=== PATIENT | female | born 1990 | race African-American/Black ===

== ENCOUNTER 2017-04-20 13:07 | Emergency (ER) | payer SELFPAY ==
[2017-04-20] MEDS ORDERED: cloNIDine 0.1 MG TAB ONE ×2 (14:30→15:34)
[2017-04-20] MEDS ORDERED: Acetaminophen 500 MG TAB ONE (14:30)
== END 2017-04-20 16:53 | disposition home or self-care (01) ==
LOC: ERS 13:07
DX: I10 Essential (primary) hypertension (principal); G40.909 Epilepsy, unspecified, not intractable, without status epilepticus; Z79.899 Other long term (current) drug therapy
CPT/HCPCS: 99283

== ENCOUNTER 2018-06-23 13:46 | Observation (INO) | payer OTHER, SELFPAY ==
[2018-06-23 15:27] LABS: #Basophils 0.1 thou/uL (0.0-0.2); #Eosinphils 0.2 thou/uL (0.0-0.7); #Lymphocytes 2.2 thou/uL (1.20-3.40); #Monocytes 0.6 thou/uL (0.11-0.59); #Neutrophils 2.3 thou/uL (1.40-6.50); %Basophils 1.1 % (0.0-1.0); %Lymphocytes 41.2 % (21.0-51.0); %Monocytes 10.7 % (0.0-10.0); Hemoglobin 12.3 g/dL (12.0-16.0); Mean Corpuscular HGB CONC 31.4 g/dL (32.0-36.0); Mean Corpuscular Hemoglobin 24.5 pg (27.0-31.0); Mean Platelet Volume 9.1 fL (7.4-10.4); Platelet Count 240 thou/uL (130-400); RBC Distribution Width 13.8 % (11.5-14.5); Red Blood Cell (RBC) Count 5.01 mill/uL (4.20-5.40); White Blood Cell (WBC) Count 5.4 thou/uL (4.8-10.8)
--- NOTE | 2018-06-23 15:42 | RAD ---
PORTABLE CHEST: Date: 06/23/18 HISTORY: Dyspnea on exertion. FINDINGS: Heart size is enlarged. Mediastinal structures are unremarkable. Lungs are clear of infiltrates. No s igns of failure. IMPRESSION: Cardiomegaly. POS: [facility]
[2018-06-23 15:46] LABS: ALT (SGPT) 12 U/L (8-55); AST (SGOT) 13 U/L (5-34); Albumin 4.2 g/dL (3.5-5.0); Alkaline Phosphatase 60 U/L (40-150); Anion Gap 13 mmol/L (10-20); BUN (Urea Nitrogen) 23 mg/dL (7.0-18.7); Bilirubin, Total 0.4 mg/dL (0.2-1.2); Calc. Creatinine Clearance 0 mL/min (70-130); Calcium 9.9 mg/dL (7.8-10.44); Carbon Dioxide 25 mmol/L (22-29); Chloride 104 mmol/L (98-107); Estimated GFR-MDRD 68; Globulin 2.7 g/dL (2.4-3.5); Glucose 84 mg/dL (70-105); Potassium 3.7 mmol/L (3.5-5.1); Protein, Total 6.9 g/dL (6.0-8.3); Sodium 138 mmol/L (136-145)
[2018-06-23 16:09] LABS: CKMB 2.2 ng/mL (0-6.6)
[2018-06-23 18:25] LABS: BHCG - Serum Negative (NEGATIVE); Pregs Control Background? CLEAR/WHITE (CLR/WHITE); Pregs Control Bar Appear? YES (CONTROL BAR)
[2018-06-23] MEDS ORDERED: Aspirin 325 MG TAB ONE (18:47)
[2018-06-23 19:22] LABS: Troponin I 0.054 ng/mL (< 0.028)
[2018-06-23 21:30] VITALS: BMI 32.5
[2018-06-23] MEDS ORDERED: Ondansetron ODT 4 MG TAB SL PRN (21:33)
[2018-06-23] MEDS ORDERED: Ondansetron PF 4 MG/2 ML Vial IVP PRN (21:33)
[2018-06-23 21:51] LABS: Troponin I 0.068 ng/mL (< 0.028)
[2018-06-24] MEDS ORDERED: Acetaminophen 325 MG TAB PO PRN (07:39)
[2018-06-24] MEDS ORDERED: Enoxaparin Sodium 40 MG/0.4 ML SYRINGE SC SCH (09:00)
--- NOTE | 2018-06-24 09:35 | HP ---
PRIMARY CARE PHYSICIAN: Dr. Magan Bacon. CHIEF COMPLAINT: Weakness, elevated blood pressure, and lightheadedness with dizziness. HISTORY OF PRESENT ILLNESS: Ms. Alexander is a pleasant 27-year-old female with past medical history of hypertension and epilepsy, she presented to [facility] with weakness, lightheadedness, and dizziness for 1 week. She was recently started on clonidine and olmesartan for her elevated blood pressure by her primary care physician, Dr. Bacon, she states whenever she takes her morning medications, she had developed these symptoms shortly after. She had denied any chest pain, however, did experience some mild shortness of breath with activity over the last week as well. She had denied any fever, chills, headache, blurred vision, abdominal pain, nausea, or vomiting. She had denied any change in her stool and denies any recent illness. She states the symptoms came on suddenly and have not gotten any better, but she also noticed symptoms worse when changing position and with activity. REVIEW OF SYSTEMS: All other systems reviewed and negative unless mentioned in the HPI. PAST MEDICAL HISTORY: Hypertension, and epilepsy, last seizure in 2014, no longer on medication. SURGICAL HISTORY: Right breast tumor removal in 2006. PSYCHIATRIC HISTORY: No previous psychiatric history noted. SOCIAL HISTORY: Alcohol use is social, when she does drink, it is roughly one drink. No tobacco or illicit drug use. KNOWN ALLERGIES: No known drug allergies. HOME MEDICATIONS: 1. Clonidine 0.2 mg b.i.d. 2. Olmesartan 40 mg p.o. daily. 3. Amlodipine 10 mg p.o. daily. 4. Hydrochlorothiazide 25 mg p.o. daily. PHYSICAL EXAMINATION: VITAL SIGNS: Blood pressure 123/83, pulse 72, respirations 14, temperature 98.3 degrees Fahrenheit, and O2 saturations 98% on room air. GENERAL: The patient is awake, alert, and oriented x3. No acute distress noted. HEENT: Atraumatic and normocephalic. Pupils are round and reactive to light. Extraocular muscles are intact. Moist mucous membranes noted. NECK: Soft, supple, and nontender. Trachea, midline. No JVD. RESPIRATORY: Clear to auscultation bilaterally. No wheezes, no rhonchi, no rales. Chest expansion equal. CARDIOVASCULAR: Positive S1 and S2. Regular rate and rhythm. No murmur or extra heart sound noted. ABDOMEN: Soft and nontender. Bowel sounds present. BACK: Normal range of motion. Nontender. No CVA tenderness. MUSCULOSKELETAL: Strength 5+ bilaterally in upper and lower extremities. Moves all extremities equal. Pedal and radial pulses are intact and palpable. NEUROLOGIC: Cranial nerves 2 through 12 are intact. No focal deficits noted. Alert and oriented x3. Gait not assessed. SKIN: Warm, dry, and intact. No lesions. No rashes. No ulcerations. PSYCHIATRIC: Good mood and affect. LABORATORY DATA: WBC 5.4, RBC 5.01, hemoglobin 12.3, platelets 240. D-dimer less than 0.27. Sodium 138, potassium 3.7, chloride 104, BUN 23, creatinine 1.15, estimated GFR 68. Troponin 0.051, trended up to 0.068; BNP 103.2. Serum , negative. DIAGNOSTIC IMAGING: Chest x-ray showed cardiomegaly, however, lungs are clear of infiltrates. No signs of congestion. ASSESSMENT AND PLAN: 1. Hypertension, blood pressure is currently stable, she is off her home medications. Monitor vital signs closely. Orthostatic vital signs negative. 2. Acute kidney injury, hold all nephrotoxic medications at this time. Continue with gentle hydration and recheck BMP. 3. Indeterminate troponin, troponin is trending up from 0.051 to 0.068, place consult for Cardiology Services. This trending of her troponin is likely secondary to acute kidney injury. However, we will rule out any ischemia and obtain stress test and echocardiogram. 4. History of epilepsy, she currently remains stable at this time. No seizure-like activity, she is not on any home medications for this and her last seizure was in 2014. 5. Deep venous thrombosis and gastrointestinal prophylaxis. 6. Code status, full code. DISPOSITION: Pending clinical workup and clinical findings. Job ID: [id number]
[2018-06-24 10:24] LABS: #Eosinphils 0.2 thou/uL (0.0-0.7); #Monocytes 0.4 thou/uL (0.11-0.59); #Neutrophils 1.8 thou/uL (1.40-6.50); %Basophils 0.3 % (0.0-1.0); %Eosinophils 5.3 % (0.0-10.0); %Lymphocytes 45.5 % (21.0-51.0); %Monocytes 8.8 % (0.0-10.0); %Neutrophils 40.1 % (42.0-75.0); Mean Corpuscular Hemoglobin 23.9 pg (27.0-31.0); Mean Corpuscular Volume 76.9 fL (78.0-98.0); Platelet Count 266 thou/uL (130-400); Red Blood Cell (RBC) Count 5.44 mill/uL (4.20-5.40); White Blood Cell (WBC) Count 4.5 thou/uL (4.8-10.8)
[2018-06-24 10:40] LABS: Anion Gap 14 mmol/L (10-20); BUN (Urea Nitrogen) 21 mg/dL (7.0-18.7); Calc. Creatinine Clearance 94 mL/min (70-130); Calcium 9.3 mg/dL (7.8-10.44); Carbon Dioxide 26 mmol/L (22-29); Chloride 104 mmol/L (98-107); Estimated GFR-MDRD 80; Glucose 95 mg/dL (70-105); Potassium 3.6 mmol/L (3.5-5.1); Sodium 140 mmol/L (136-145)
[2018-06-24] MEDS: Famotidine 20 MG TAB PO SCH ×2 (10:40→20:46)
[2018-06-24] MEDS ORDERED: Regadenoson 0.4 MG/5 ML SYRINGE ONE (12:03)
[2018-06-24 12:36] LABS: Troponin I 0.051 ng/mL (< 0.028)
--- NOTE | 2018-06-24 17:28 | NM ---
NUCLEAR MEDICINE CARDIAC STRESS WITH EF AND WALL MOTION: HISTORY: Hypertension. Chest pain. COMPARISON: None TECHNIQUE: The patient was administered 9.6 millicuries of technetium 99m sestamibi for rest imaging and 30.30 m illicuries of technetium 99m sestamibi for stress imaging. Cardiac gating was performed. FINDINGS: There is some reversibility involving the mid and basal portion of the lateral wall of the left ventr icle. There are no fixed defects. TID is 0.92. End-diastolic volume is 185 mL. End-systolic volume is 131 mL. CARDIAC GATING: Global hypokinesis. Ejection fraction 30%. IMPRESSION: 1. Reversibility involving the lateral wall of the left ventricle. 2. Enlarged left ventricle. 3. Global hypokinesis. 4. Ejection fraction 30%. POS: [facility]
[2018-06-24] MEDS ORDERED: Communication Order-Pharmacy FS SCH (21:15)
--- NOTE | 2018-06-25 01:29 | CON ---
DATE OF CONSULTATION: HISTORY OF PRESENT ILLNESS: Renetta Alexander is a 27-year-old black female with long-standing history of hypertension since the age of 18. She came to the emergency room for evaluation of weakness, lightheadedness, and dizziness that has been occurring over the last week. She was recently started on clonidine and Olmesartan for her hypertension, and shortly after taking her morning medicines , she would develop the lightheadedness. She also states that if she walks 20 feet, she will become short of breath. At times, she does have some chest tightness, but it is very vague about when that occurs. She denies any history of PND or orthopnea. She denies any leg edema. She has not had any fever, headache, nausea, or vomiting. Since being admitted, those medications have been stopped, and she has not had the lightheadedness. PAST MEDICAL HISTORY: Hypertension and epilepsy. Her last seizure was in 2014 and is no longer on any medications for that. PAST SURGICAL HISTORY: Removal of right benign breast tumor in 2006. CURRENT MEDICATIONS: At home, 1. Clonidine 0.2 b.i.d. 2. Olmesartan 40 daily. 3. Amlodipine 10 mg daily. 4. Hydrochlorothiazide 25 daily. ALLERGIES: NONE. SOCIAL HISTORY: She has never smoked. She rarely will have a drink. She works in housekeeping at [employer]. FAMILY HISTORY: Positive for hypertension. REVIEW OF SYSTEMS: A 10-point review of systems is, otherwise, unremarkable. PHYSICAL EXAMINATION: VITAL SIGNS: Blood pressure 141/87, 137/88, pulse of 93. She did have a blood pressure of 168/110 during Lexiscan Cardiolite testing. HEENT: PERRL. NECK: Supple. CHEST: Clear. CARDIAC: S1 and S2 normal without any S3, S4, or murmurs. ABDOMEN: Normal bowel sounds without tenderness. EXTREMITIES: Revealed no clubbing, cyanosis, or edema. NEUROLOGIC: Grossly intact. SKIN: Warm and dry. LABORATORY DATA: EKG reveals normal sinus rhythm with left ventricular hypertrophy with repolarization abnormalities. Hemoglobin 13.0, hematocrit 41.8, white count 4500, platelets 266,000. D-dimer less than 0.27. Admission creatinine was 1.15 , however this has fallen to 1.00. Sodium 140, potassium 3.6, chloride 104, carbon dioxide 26. Troponin I is up to 0.068. BNP 103.2. Lexiscan Cardiolite test revealed enlarged left ventricle with end-diastolic volume of 185 mL and systolic volume of 131 mL with ejection fraction of 30% and global hypokinesis. There was lateral wall ischemia. Echocardiogram revealed mild concentric left ventricular hypertrophy with mild left ventricular enlargement. Ejection fraction was severely depressed at 20% to 25%. There is mild left atrial enlargement, moderate mitral regurgitation, mild tricuspid regurgitation, and mild pulmonic regurgitation. IMPRESSION: 1. Lightheadedness, dizziness, and weakness, probably due to hypotension at home. 2. Longstanding hypertension which apparently has been somewhat difficult to control. 3. Severe left ventricular dysfunction with ejection fraction of 20% to 25%. 4. Lateral wall ischemia, on Cardiolite. 5. History of seizure disorder, on no medications at this time. RECOMMENDATIONS: It is recommended that Ms. Alexander undergo cardiac catheterization. Risks of this were discussed including , myocardial infarction, dye reaction, vascular injury, CVA, transfusion, limb loss, renal loss, etc. Risks of intervention and stent placement were discussed including , myocardial infarction, emergent CABG, restenosis, stent thrombosis, vessel perforation, etc. She has no history of gastrointestinal bleeding or stroke. She does not have any upcoming surgeries. It was recommended that a drug-eluting stent will be placed if required. However, in a nonsmoking female in this age group, it would be somewhat unusual to have coronary artery disease unless she has some type of congenital anomaly. Also in her age group with very [id number] blood pressure in a young female, renal arteriography will be performed to rule out fibromuscular dysplasia of the renal arteries. Job ID: [id number] [facility]
[2018-06-25 05:13] LABS: Anion Gap 14 mmol/L (10-20); BUN (Urea Nitrogen) 23 mg/dL (7.0-18.7); Calc. Creatinine Clearance 90 mL/min (70-130); Calcium 9.4 mg/dL (7.8-10.44); Carbon Dioxide 24 mmol/L (22-29); Cardiac Risk 5.6 (Less than 4.5); Chloride 105 mmol/L (98-107); Cholesterol 163 mg/dl (< 200 Desired); Estimated GFR-MDRD 76; Glucose 97 mg/dL (70-105); HDL Cholesterol 29 mg/dL (>60 Neg Risk); LDL Cholesterol, Calculated 101 mg/dL; Potassium 3.4 mmol/L (3.5-5.1); Sodium 140 mmol/L (136-145); Triglycerides 165 mg/dL (Less than 150)
[2018-06-25 05:37] LABS: Band 1 % (5-11); Eosinophils 2 % (0-10); Hemoglobin 13.2 g/dL (12.0-16.0); Lymphocytes 47 % (21-51); MDiff Complete? YES; Mean Corpuscular HGB CONC 31.4 g/dL (32.0-36.0); Mean Corpuscular Hemoglobin 24.3 pg (27.0-31.0); Mean Corpuscular Volume 77.3 fL (78.0-98.0); Mean Platelet Volume 9.2 fL (7.4-10.4); Monocytes 6 % (0-10); Neutrophil 42 % (42-75); Platelet Count 281 thou/uL (130-400); Reactive Lymphocytes 2 % (0-10); Red Blood Cell (RBC) Count 5.43 mill/uL (4.20-5.40)
[2018-06-25] MEDS ORDERED: Sodium Chloride 0.9% 1,000 ML IV SCH ×2 (06:00→07:47)
[2018-06-25] MEDS: Famotidine 20 MG TAB PO SCH ×2 (06:15→20:57)
[2018-06-25] MEDS ORDERED: Heparin 10,000 UNITS/1 ML VIAL ONE (06:30)
[2018-06-25] MEDS ORDERED: Midazolam HCl 2 mg/2 ml Vial ONE (07:00)
[2018-06-25] MEDS ORDERED: Fentanyl 100 MCG/2 ML VIAL ONE (07:00)
[2018-06-25] MEDS ORDERED: Protamine Sulfate 50 MG/5 ML VIAL ONE (07:26)
[2018-06-25] MEDS ORDERED: hydrALAZINE 20 MG/ML VIAL ONE (07:32)
[2018-06-25] MEDS ORDERED: Enalaprilat Dihydrate 1.25 MG/ML VIAL ONE ×2 (07:39→07:41)
[2018-06-25] MEDS ORDERED: Acetaminophen/Codeine 30-300mg Tablet PO PRN ×2 (07:45)
[2018-06-25] MEDS ORDERED: traMADol HCl 50 MG TAB PO PRN (07:45)
[2018-06-25] MEDS ORDERED: Potassium Chloride 20 MEQ TAB PO SCH (07:45)
[2018-06-25] MEDS ORDERED: Sodium Chloride 0.9% 200 ML IV SCH (07:45)
[2018-06-25] MEDS ORDERED: Carvedilol 3.125 MG TAB PO SCH (08:00)
[2018-06-25] MEDS ORDERED: Iopamidol 370 76% 50 ML VIAL FS ONE (11:30)
[2018-06-25] MEDS ORDERED: Iopamidol 370 76% 100 ML VIAL ONE (11:30)
--- NOTE | 2018-06-25 14:49 | PDOC.PN ---
- Subjective Encounter Start Date: 06/25/18 Encounter Start Time: 14:48 Subjective: Patient lying in bed, reports feeling well today. No chest pain or SOB -: Underwent cath which showed no ischemia, however EF 15-20% - Objective Resuscitation Status - Order Detail: 06/24/18 07:39 Resuscitation Status Routine Co-Sign Provider: Resuscitation Status: FULL: Full Resuscitation MAR Reviewed: Yes Vital Signs & Weight: Vital Signs (12 hours) Temp Pulse Resp BP BP BP Pulse Ox 06/25/18 11:40 84 20 142/85 H 97 06/25/18 08:00 77 16 144/84 H 06/25/18 07:58 97.7 F 79 20 144/84 H 94 L 06/25/18 03:59 98.1 F 68 16 144/95 H 97 Weight Weight 153 lb 12.8 oz I&O: 06/24/18 06/25/18 06/26/18 06:59 06:59 06:59 Intake Total 300 1200 Output Total 600 Balance -300 1200 Result Diagrams: 06/25/18 04:35 06/25/18 04:35 Radiology Reviewed by me: Yes Phys Exam - Physical Examination Constitutional: NAD HEENT: PERRLA, oral pharynx no lesions Neck: no nodes, full ROM Respiratory: no wheezing, clear to auscultation bilateral Cardiovascular: RRR, no significant murmur Gastrointestinal: soft, positive bowel sounds Musculoskeletal: no edema, pulses present Neurological: non-focal, moves all 4 limbs Lymphatic: no nodes Psychiatric: normal affect, A&O x 3 Skin: no rash, cap refill <2 seconds Dx/Plan (1) Cardiomyopathy Code(s): I42.9 - CARDIOMYOPATHY, UNSPECIFIED Status: Acute (2) Systolic CHF, acute Code(s): I50.21 - ACUTE SYSTOLIC (CONGESTIVE) HEART FAILURE Status: Acute (3) Hypertension Code(s): I10 - ESSENTIAL (PRIMARY) HYPERTENSION Status: Acute - Plan cont current plan of care * Cardiology following, planning for lifevest * Continue medical management including newly added furosemide and entresto * Continue other home medications for BP control * Monitor vitals and labs * Likely discharged once okay with cardiology
[2018-06-25] MEDS: Carvedilol 6.25 MG TAB PO SCH ×2 (15:10→16:55)
[2018-06-25] MEDS: Sacubitril 24.5 MG/Valsartan 25.5 MG TABLET PO SCH ×2 (15:19→20:57)
[2018-06-25] MEDS: Furosemide 20 MG TAB PO SCH (15:20)
[2018-06-25] MEDS: Docusate 100 MG CAP PO SCH (20:57)
[2018-06-26 07:14] LABS: Anion Gap 11 mmol/L (10-20); BUN (Urea Nitrogen) 14 mg/dL (7.0-18.7); Calc. Creatinine Clearance 102 mL/min (70-130); Calcium 9.1 mg/dL (7.8-10.44); Carbon Dioxide 23 mmol/L (22-29); Chloride 107 mmol/L (98-107); Estimated GFR-MDRD Greater than 90; Glucose 101 mg/dL (70-105); Potassium 3.5 mmol/L (3.5-5.1); Sodium 137 mmol/L (136-145)
[2018-06-26] MEDS: Carvedilol 6.25 MG TAB PO SCH ×2 (08:34→17:30)
[2018-06-26] MEDS: Docusate 100 MG CAP PO SCH (08:35)
[2018-06-26] MEDS: Sacubitril 24.5 MG/Valsartan 25.5 MG TABLET PO SCH (08:35)
[2018-06-26] MEDS: Furosemide 20 MG TAB PO SCH (08:35)
[2018-06-26] MEDS: Famotidine 20 MG TAB PO SCH (08:35)
[2018-06-26 15:56] VITALS: TEMP 98
[2018-06-26 17:30] VITALS: BP 145/92
[2018-06-26] MEDS ORDERED: Sacubitril 24.5 MG/Valsartan 25.5 MG TABLET PO SCH (21:00)
--- NOTE | 2018-07-01 14:18 | STRESS ---
Acquisition Time: 2018-06-24 15:08:41 Total Exercise Time: 00:01:01 Test Indications: CHEST PAIN Medications: Protocol: ADENOSINE Max HR: 112 BPM 58% of Pred: 192 BPM Max BP: 168/110 mmHG Max Work Load: 1.0 METS RESTING ECG: NORMAL SINUS RHYTHM AT 74 BPM; LEFT VENTRICULAR HYPERTROPHY WITH REPLARIZATION ABNORMALITY SYMPTOMS: NAUSEA NORMAL BP RESPONSE ECTOPY: NONE ECG STRESS: NO SIGNIFICANT CHANGES INTERPRETATION: AWAIT NUCLEAR IMAGES FOR DEFINITIVE DIAGNOSIS Confirmed by MANDY JARVIS ([id number]), image editor JAMEL BENSON ([id number]) on 07/01/2018 2:17:16 PM Referred By: GRAHAM PRASAD Confirmed By:MANDY JARVIS
== END 2018-06-26 20:08 | disposition home or self-care (01) ==
LOC: ERS 13:46 → 2SW 18:00
PROVIDERS: ADMIT Internal Medicine; ATTEND Internal Medicine
PROC: 4A023N7 Measurement of Cardiac Sampling and Pressure, Left Heart, Percutaneous Approach (ICD-10-PCS; principal; 2018-06-26)
PROC: B2111ZZ Fluoroscopy of Multiple Coronary Arteries using Low Osmolar Contrast (ICD-10-PCS; 2018-06-26)
DX: R07.89 Other chest pain (principal); R94.39 Abnormal result of other cardiovascular function study; R42 Dizziness and giddiness; R53.1 Weakness; G40.909 Epilepsy, unspecified, not intractable, without status epilepticus; I11.0 Hypertensive heart disease with heart failure; I50.21 Acute systolic (congestive) heart failure; I42.9 Cardiomyopathy, unspecified; N17.9 Acute kidney failure, unspecified; I25.9 Chronic ischemic heart disease, unspecified; Z79.899 Other long term (current) drug therapy
CPT/HCPCS: 36415; 71045; 78452; 80048; 80053; 80061; 82553; 83880; 84484; 84703; 85025; 85347; 85379; 93005; 93017; 93306; 93458; 93798; 96360; 96361; 96372; 99152; 99153; A9500; C1769; G0378; J0360; J1644; J1650; J2250; J2720; J2785; J3010; Q9967

== ENCOUNTER 2018-07-01 02:46 | Emergency (ER) | payer OTHER ==
[2018-07-01 04:10] LABS: #Basophils 0.1 thou/uL (0.0-0.2); #Eosinphils 0.2 thou/uL (0.0-0.7); #Lymphocytes 2.9 thou/uL (1.20-3.40); #Monocytes 0.5 thou/uL (0.11-0.59); #Neutrophils 2.2 thou/uL (1.40-6.50); %Basophils 1.6 % (0.0-1.0); %Eosinophils 4.1 % (0.0-10.0); %Lymphocytes 49.1 % (21.0-51.0); %Monocytes 8.5 % (0.0-10.0); %Neutrophils 36.7 % (42.0-75.0); Hemoglobin 13.1 g/dL (12.0-16.0); Mean Corpuscular HGB CONC 32.3 g/dL (32.0-36.0); Mean Corpuscular Volume 77.5 fL (78.0-98.0); Mean Platelet Volume 8.8 fL (7.4-10.4); Platelet Count 309 thou/uL (130-400); RBC Distribution Width 13.8 % (11.5-14.5); Red Blood Cell (RBC) Count 5.23 mill/uL (4.20-5.40); White Blood Cell (WBC) Count 5.9 thou/uL (4.8-10.8)
[2018-07-01 04:33] LABS: Anion Gap 16 mmol/L (10-20); BUN (Urea Nitrogen) 16 mg/dL (7.0-18.7); CK (CPK) 101 U/L (29-168); Calc. Creatinine Clearance 0 mL/min (70-130); Calcium 9.5 mg/dL (7.8-10.44); Carbon Dioxide 20 mmol/L (22-29); Chloride 107 mmol/L (98-107); Estimated GFR-MDRD 90; Glucose 94 mg/dL (70-105); Potassium 3.6 mmol/L (3.5-5.1); Sodium 139 mmol/L (136-145)
--- NOTE | 2018-07-01 09:50 | ULT ---
PRELIMINARY REPORT/[facility]/EMERGENTY AFTER-HOURS PROCEDURE US Duplex Bilateral Lower Extremity Veins EXAM DATE/TIME: 07/01/2018 4:03 AM CLINICAL HISTORY: 27 years old, female; Pain; Other: Aching bilateral leg pain, recent hrt stent TECHNIQUE: Real-time duplex ultrasound of the Bilateral Lower Extremities with 2-D mills scale, color Doppler therese w and spectral waveform analysis. Complete exam focused on the bilateral lower extremity veins. COMPARISON: No relevant prior studies available. FINDINGS: Right deep veins: Unremarkable. The common femoral, femoral, proximal profunda femoral and popliteal veins are patent without thrombus. Normal Doppler waveforms. Normal compressibility and/or augmentati on response. Right superficial veins: Saphenofemoral junction is patent without thrombus. Left deep veins: Unremarkable. The common femoral, femoral, proximal profunda femoral and popliteal v eins are patent without thrombus. Normal Doppler waveforms. Normal compressibility and/or augmentatio n response. Left superficial veins: Saphenofemoral junction is patent without thrombus. IMPRESSION: Negative for DVT. Thank you for allowing us to participate in the care of your patient. Dictated and Authenticated by: Aj Canales MD 07/01/2018 4:39 AM Central Time ([place] & [place]) FINAL REPORT EMERGENT AFTER HOURS BILATERAL LOWER EXTREMITY VENOUS ULTRASOUND: FINDINGS/IMPRESSION: I agree with the findings and impression given in the preliminary report per [facility] physician. No jv dence of DVT. POS: [facility]
== END 2018-07-01 04:53 | disposition home or self-care (01) ==
LOC: ERS 02:46
DX: M79.10 Myalgia, unspecified site (principal); I10 Essential (primary) hypertension; G40.909 Epilepsy, unspecified, not intractable, without status epilepticus; Z79.899 Other long term (current) drug therapy
CPT/HCPCS: 36415; 80048; 82550; 85025; 93970

== ENCOUNTER 2018-10-01 15:07 | Emergency (ER) | payer OTHER ==
[2018-10-01 16:10] LABS: #Eosinphils 0.2 thou/uL (0.0-0.7); #Lymphocytes 1.8 thou/uL (1.20-3.40); #Monocytes 0.4 thou/uL (0.11-0.59); #Neutrophils 1.8 thou/uL (1.40-6.50); %Lymphocytes 43.6 % (21.0-51.0); %Monocytes 8.7 % (0.0-10.0); %Neutrophils 42.7 % (42.0-75.0); Hemoglobin 12.1 g/dL (12.0-16.0); Mean Corpuscular HGB CONC 31.1 g/dL (32.0-36.0); Mean Corpuscular Hemoglobin 24.7 pg (27.0-31.0); Mean Corpuscular Volume 79.5 fL (78.0-98.0); Mean Platelet Volume 8.6 fL (7.4-10.4); Platelet Count 240 thou/uL (130-400); RBC Distribution Width 13.5 % (11.5-14.5); White Blood Cell (WBC) Count 4.2 thou/uL (4.8-10.8)
[2018-10-01 16:20] LABS: BHCG - Serum Negative (NEGATIVE); Pregs Control Background? CLEAR/WHITE (CLR/WHITE); Pregs Control Bar Appear? YES (CONTROL BAR)
[2018-10-01 16:28] LABS: Bilirubin Negative (Negative); Blood, Urine Negative (Negative); Clarity CLEAR (Clear); Glucose, Urine (Dipstick) Negative (Negative); Leukocyte Negative (Negative); Nitrite Negative (Negative); Protein, Urine (Dipstick) Negative (Neg-Trace); Specific Gravity, Urine 1.015 (1.002-1.036); Urobilinogen 0.2 mg/dL (0.2-1.0); pH, Urine 5.5 (5.0-9.0)
[2018-10-01 16:32] LABS: ALT (SGPT) 9 U/L (8-55); AST (SGOT) 12 U/L (5-34); Albumin 4.2 g/dL (3.5-5.0); Alkaline Phosphatase 52 U/L (40-150); Anion Gap 11 mmol/L (10-20); BUN (Urea Nitrogen) 10 mg/dL (7.0-18.7); Bilirubin, Total 0.6 mg/dL (0.2-1.2); Calc. Creatinine Clearance 0 mL/min (70-130); Calcium 9.4 mg/dL (7.8-10.44); Carbon Dioxide 28 mmol/L (22-29); Chloride 104 mmol/L (98-107); Estimated GFR-MDRD 90; Globulin 2.6 g/dL (2.4-3.5); Glucose 89 mg/dL (70-105); Potassium 3.6 mmol/L (3.5-5.1); Protein, Total 6.8 g/dL (6.0-8.3); Sodium 139 mmol/L (136-145)
--- NOTE | 2018-10-05 10:31 | EKG ---
Test Reason : Blood Pressure : / mmHG Vent. Rate : 069 BPM Atrial Rate : 069 BPM P-R Int : 150 ms QRS Dur : 096 ms QT Int : 432 ms P-R-T Axes : 027 -03 -24 degrees QTc Int : 462 ms Normal sinus rhythm Voltage criteria for left ventricular hypertrophy Abnormal ECG Confirmed by ELIZABETH WHITAKER ([id number]), newspaper editor managing MARGE BURR ([id number]) on 10/05/2018 10:31:13 AM Referred By: Confirmed By:ELIZABETH WHITAKER
== END 2018-10-01 17:02 | disposition home or self-care (01) ==
LOC: ERS 15:07
DX: I10 Essential (primary) hypertension (principal); G40.909 Epilepsy, unspecified, not intractable, without status epilepticus; Z79.891 Long term (current) use of opiate analgesic; Z79.899 Other long term (current) drug therapy
CPT/HCPCS: 36415; 80053; 81003; 84484; 84703; 85025; 93005

== ENCOUNTER 2018-10-11 11:06 | Outpatient (CLI) | payer OTHER ==
[2018-10-11 12:02] LABS: BHCG - Serum Negative (NEGATIVE); Pregs Control Background? CLEAR/WHITE (CLR/WHITE); Pregs Control Bar Appear? YES (CONTROL BAR)
[2018-10-11 12:07] LABS: INR-International Normal Ratio 1.1; PTT 31.9 SEC (22.9-36.1); Prothrombin Time 13.9 SEC (12.0-14.7)
[2018-10-11 12:14] LABS: Hemoglobin 12.6 g/dL (12.0-16.0); Mean Corpuscular HGB CONC 32.8 g/dL (32.0-36.0); Mean Corpuscular Hemoglobin 25.6 pg (27.0-31.0); Mean Platelet Volume 9.1 fL (7.4-10.4); Platelet Count 206 thou/uL (130-400); RBC Distribution Width 13.3 % (11.5-14.5); Red Blood Cell (RBC) Count 4.94 mill/uL (4.20-5.40); White Blood Cell (WBC) Count 5.1 thou/uL (4.8-10.8)
[2018-10-11 12:23] LABS: Anion Gap 10 mmol/L (10-20); BUN (Urea Nitrogen) 11 mg/dL (7.0-18.7); Calc. Creatinine Clearance 0 mL/min (70-130); Calcium 9.7 mg/dL (7.8-10.44); Carbon Dioxide 25 mmol/L (22-29); Chloride 107 mmol/L (98-107); Estimated GFR-MDRD Greater than 90; Glucose 96 mg/dL (70-105); Potassium 4.1 mmol/L (3.5-5.1); Sodium 138 mmol/L (136-145)
--- NOTE | 2018-10-12 13:54 | EKG ---
Test Reason : Blood Pressure : / mmHG Vent. Rate : 060 BPM Atrial Rate : 060 BPM P-R Int : 142 ms QRS Dur : 094 ms QT Int : 458 ms P-R-T Axes : 026 -05 -10 degrees QTc Int : 458 ms Normal sinus rhythm with sinus arrhythmia Voltage criteria for left ventricular hypertrophy Nonspecific T wave abnormality Abnormal ECG When compared with ECG of 01-OCT-2018 15:14, Nonspecific T wave abnormality now evident in Anterior leads Confirmed by DR. Rivka COOPER ([id number]) on 10/12/2018 1:54:04 PM Referred By: [facility] Confirmed By:DR. Rivka COOPER
== END 2018-10-11 11:07 | disposition home or self-care (01) ==
LOC: LABBT 11:06
PROVIDERS: ATTEND Internal Medicine Cardiovascular Disease
DX: Z01.818 Encounter for other preprocedural examination (principal); I50.9 Heart failure, unspecified
CPT/HCPCS: 80048; 84703; 85027; 85610; 85730; 93005; 93010

== ENCOUNTER 2018-10-16 07:10 | Observation (INO) | payer OTHER ==
[2018-10-11 11:19] VITALS: BMI 30.5
[2018-10-16] MEDS ORDERED: Meperidine HCl/PF 25 MG/ML VIAL ONE (09:22)
[2018-10-16] MEDS ORDERED: Midazolam HCl 2 mg/2 ml Vial ONE (09:22)
[2018-10-16] MEDS ORDERED: Propofol 500 MG/50 ML VIAL ONE (09:27)
[2018-10-16] MEDS ORDERED: Iopamidol 370 76% 50 ML VIAL FS ONE (11:19)
[2018-10-16] MEDS ORDERED: hydrALAZINE 20 MG/ML VIAL ONE ×2 (11:22→17:39)
[2018-10-16] MEDS ORDERED: Fentanyl 100 MCG/2 ML VIAL ONE (11:23)
[2018-10-16] MEDS ORDERED: Promethazine HCl 25 MG/ML VIAL ONE (12:48)
[2018-10-16] MEDS ORDERED: PROPOFOL 200 MG/20 ML VIAL ONE (13:39)
[2018-10-16] MEDS ORDERED: Metoprolol Tartrate 5 MG/5 ML VIAL ONE (15:09)
[2018-10-16] MEDS ORDERED: Sodium Chloride 0.9% 10 ML ONE (15:17)
[2018-10-16] MEDS ORDERED: Chloraseptic Spray 180 ml Bottle PO PRN (15:37)
[2018-10-16] MEDS ORDERED: Sacubitril 24.5 MG/Valsartan 25.5 MG TABLET PO SCH (15:45)
--- NOTE | 2018-10-16 16:51 | RAD ---
SINGLE VIEW OF THE CHEST: 10/16/18 COMPARISON: 06/23/18 HISTORY: Defibrillator placement. FINDINGS: Single view of the chest shows an enlarged but stable cardiomediastinal silhouette. There is a left s ubclavian pacemaker with its tip in the right ventricle. No pneumothorax is seen. There is no evidenc e of consolidation, mass, or pleural effusion. IMPRESSION: Status post pacemaker placement without evidence of complication. POS: [facility]
[2018-10-16] MEDS ORDERED: hydrALAZINE 20 MG/ML VIAL SLOW IVP PRN (17:08)
[2018-10-16] MEDS ORDERED: Metoprolol Tartrate 5 MG/5 ML VIAL IVP PRN (17:09)
[2018-10-16] MEDS ORDERED: Ondansetron PF 4 MG/2 ML Vial IVP PRN (17:09)
[2018-10-16] MEDS ORDERED: Acetaminophen/Codeine 30-300mg Tablet PO PRN ×2 (17:15)
[2018-10-16] MEDS ORDERED: hydrALAZINE 20 MG/ML VIAL SLOW IVP SCH (17:15)
[2018-10-16] MEDS ORDERED: Ondansetron PF 4 MG/2 ML Vial ONE (17:39)
[2018-10-16] MEDS ORDERED: Sodium Chloride 0.9% 20 ML ONE (17:40)
[2018-10-16] MEDS: Cephalexin 250 MG CAP PO SCH (20:26)
[2018-10-16] MEDS: Sacubitril 24.5 MG/Valsartan 25.5 MG TABLET PO SCH (20:26)
[2018-10-17 08:12] VITALS: TEMP 98.4
[2018-10-17] MEDS ORDERED: Furosemide 20 MG TAB PO SCH (09:00)
[2018-10-17] MEDS: Sacubitril 24.5 MG/Valsartan 25.5 MG TABLET PO SCH (10:23)
[2018-10-17] MEDS: Cephalexin 250 MG CAP PO SCH (10:23)
[2018-10-17 11:42] VITALS: BP 141/91
[2018-10-17] MEDS ORDERED: Carvedilol 6.25 MG TAB PO SCH (17:00)
--- NOTE | 2018-10-19 01:04 | DIS ---
DATE OF ADMISSION: 10/16/2018 DATE OF DISCHARGE: 10/17/2018 DIAGNOSES: Nonischemic cardiomyopathy, hypertension, nausea. PROCEDURES PERFORMED: Include ICD implantation. HISTORY OF PRESENT ILLNESS: Ms. Alexander is a pleasant 28-year-old woman with nonischemic cardiomyopathy with persistently reduced left ventricular systolic function. She has normal coronary arteries and was currently stable on medical therapy. It was decided to move forward with primary prophylactic implant of a single-chamber ICD for the prevention of sudden cardiac given her persistently reduced LV systolic function. This was performed on 10/16/2018 without complication and a Medtronic single-chamber ICD was implanted. Following her procedure, she has a significantly elevated blood pressures with associated nausea and was kept overnight for blood pressure and nausea management. Her oral medications were adjusted in addition to receiving some IV hydralazine and Lopressor. She was given Zofran and single dose of Phenergan immediately postoperatively to address her nausea, which has been stable since that time. SUBJECTIVE: Ms. Perez is feeling well this morning. She denies any persisting nausea and has been tolerating clear liquids without difficulty overnight. She denies any heart racing, palpitations, chest pain, pressure, syncope, near syncope, stroke, or stroke-like symptoms. She has minimal tenderness at her ICD implant site. Denies any fevers, chills, or malaise. She feels she is ready to go home. OBJECTIVE: VITAL SIGNS: Blood pressure 148/88, temperature 98.7, pulse 92, respirations 16, oxygen is 98% on room air. GENERAL: The patient is alert and oriented. Speech is clear. Affect is appropriate. NECK: Supple without jugular venous distention. HEART: Rate is regularly regular with crisp S1 and S2, newly implanted ICD is seated at the left infraclavicular fossa with minimal swelling. There is no bruising. There is a surgical Dermabond in place over the incision. There is no drainage. No signs of hematoma or bleeding complications. LUNGS: Clear to auscultation bilaterally. ABDOMEN: Soft, nontender. EXTREMITIES: Warm and dry to touch without clubbing, cyanosis, or edema. NEUROLOGIC: Nonfocal and grossly intact. Gait is stable. DISCHARGE MEDICATIONS: Resuming home medications of; 1. Entresto 24.5/25.5 one tab p.o. b.i.d. 2. Lasix 20 mg p.o. daily. 3. Coreg was increased to 12.5 mg p.o. b.i.d. 4. New prescription called in for Keflex 500 mg p.o. q.i.d. x7 days post implant and Zofran 4 mg p.o. q.8 hours p.r.n. nausea. DISCHARGE INSTRUCTIONS: Take antibiotic and medications as prescribed. Contact our office with any post implant questions. Keep incision clean and dry. Watch for signs of infection and return to clinic in 2 weeks for a wound and device check. CONDITION AT DISCHARGE: Stable. Job ID: [id number]
== END 2018-10-17 11:39 | disposition home or self-care (01) ==
LOC: CCL 07:10 → 2SW 18:14
PROVIDERS: ADMIT Internal Medicine Cardiovascular Disease; ATTEND Internal Medicine Cardiovascular Disease
PROC: 0JH608Z Insertion of Defibrillator Generator into Chest Subcutaneous Tissue and Fascia, Open Approach (ICD-10-PCS; principal; 2018-10-17)
PROC: 02HK3KZ Insertion of Defibrillator Lead into Right Ventricle, Percutaneous Approach (ICD-10-PCS; 2018-10-17)
DX: I11.0 Hypertensive heart disease with heart failure (principal); I50.22 Chronic systolic (congestive) heart failure; I42.8 Other cardiomyopathies; G40.909 Epilepsy, unspecified, not intractable, without status epilepticus; Z88.1 Allergy status to other antibiotic agents; Z79.899 Other long term (current) drug therapy
CPT/HCPCS: 33249; 36005; 71045; 75820; 90471; 90732; 93005; 93010; 93798; C1777; C1786; G0009; G0378; J0360; J0690; J2175; J2250; J2405; J2550; J2704; J3010; J3490; Q9967

== ENCOUNTER 2019-03-11 09:55 | Outpatient (CLI) | payer OTHER ==
--- NOTE | 2019-03-11 10:10 | RAD ---
Chest 2 views: 03/11/2019 COMPARISON: 10/16/2018 HISTORY: Disability examination, difficulty breathing for 3-4 weeks FINDINGS: Stable left-sided AICD. Stable prominence of the cardiac silhouette. No pneumothorax or ple ural fluid. No focal consolidation or alveolar edema. IMPRESSION: Stable appearance of the chest as described above.
== END 2019-03-11 09:56 | disposition home or self-care (01) ==
LOC: BICRAD 09:55
PROVIDERS: ATTEND Internal Medicine
DX: Z02.71 Encounter for disability determination (principal)
CPT/HCPCS: 71046

== ENCOUNTER 2019-04-24 05:58 | Observation (INO) | payer OTHER, SELFPAY ==
[2019-04-24] MEDS ORDERED: cloNIDine 0.1 MG TAB ONE (06:19)
[2019-04-24 06:41] LABS: Hemoglobin 12.6 g/dL (12.0-16.0); Mean Corpuscular HGB CONC 31.3 g/dL (32.0-36.0); Mean Corpuscular Hemoglobin 24.5 pg (27.0-31.0); Mean Corpuscular Volume 78.5 fL (78.0-98.0); Mean Platelet Volume 8.7 fL (7.4-10.4); Platelet Count 257 thou/uL (130-400); RBC Distribution Width 12.6 % (11.5-14.5); Red Blood Cell (RBC) Count 5.15 mill/uL (4.20-5.40); White Blood Cell (WBC) Count 5.4 thou/uL (4.8-10.8)
[2019-04-24 06:59] LABS: Band 1 % (5-11); Eosinophils 4 % (0-10); Lymphocytes 62 % (21-51); MDiff Complete? YES; Monocytes 6 % (0-10); Neutrophil 27 % (42-75); RBC Morphology Normal
[2019-04-24 07:04] LABS: ALT (SGPT) 7 U/L (8-55); AST (SGOT) 11 U/L (5-34); Albumin 4.4 g/dL (3.5-5.0); Alkaline Phosphatase 59 U/L (40-110); Anion Gap 12 mmol/L (10-20); BUN (Urea Nitrogen) 13 mg/dL (7.0-18.7); Bilirubin, Total 0.7 mg/dL (0.2-1.2); Calc. Creatinine Clearance 0 mL/min (70-130); Calcium 9.3 mg/dL (7.8-10.44); Carbon Dioxide 25 mmol/L (22-29); Chloride 104 mmol/L (98-107); Estimated GFR-MDRD 70; Glucose 108 mg/dL (70-105); Potassium 3.3 mmol/L (3.5-5.1); Protein, Total 7.4 g/dL (6.0-8.3); Sodium 138 mmol/L (136-145)
--- NOTE | 2019-04-24 07:46 | RAD ---
Chest AP view INDICATION: History of hypertension and tachycardia COMPARISON: March 11, 2019 FINDINGS: Lungs:The lungs are clear Cardiac silhouette:Mild cardiomegaly and AICD are stable. Pulmonary vasculature:Normal Pleural spaces:No pleural effusion or pneumothorax is demonstrated. Upper abdomen:No abnormality seen. Osseous structures: No acute osseous abnormality. Additional findings:None. IMPRESSION: Stable mild cardiomegaly and AICD
[2019-04-24] MEDS ORDERED: Nitroglycerin 2% Ointment 1 INCH/1 GM Packet ONE (08:11)
[2019-04-24 09:52] LABS: Troponin I Less than 0.010 ng/mL (< 0.028)
[2019-04-24] MEDS ORDERED: hydrALAZINE 20 MG/ML VIAL SLOW IVP PRN (10:05)
[2019-04-24 10:09] VITALS: BMI 30.3
[2019-04-24] MEDS ORDERED: Sacubitril 49 MG/Valsartan 51 MG TABLET PO SCH (10:30)
[2019-04-24] MEDS ORDERED: Potassium Chloride 20 MEQ TAB PO SCH (10:30)
[2019-04-24] MEDS ORDERED: Furosemide 20 MG TAB PO SCH (10:30)
--- NOTE | 2019-04-24 12:14 | HP ---
CHIEF COMPLAINT: Shortness of breath and dizziness. HISTORY OF PRESENT ILLNESS: This patient is a 28-year-old female, who has a history of significant nonischemic cardiomyopathy, EF is around 20% to 25%. The patient had a defibrillator placed back in September with Dr. Dawkins. She has been taking her usual home medications without missing any doses and has remained compliant. She has not had any other significant changes today; however, the patient had fairly abrupt onset of some dizziness and felt like her heart was racing, starting about 1:00 this morning. There is no discharge from her defibrillator. She had no particular chest pain. She reports that she does have some chronic mild orthopnea and dry cough. She is typically continuing to run hypertensive with a systolic running 170 to 180 range. REVIEW OF SYSTEMS: The patient has had some difficulty with sleep, some difficulty with constipation, palpitations, cough as mentioned above. She has also had some arthralgias and swelling in her knees. All other systems reviewed. All pertinent positives and negatives noted in the history of present illness. PAST MEDICAL HISTORY: Notable for the above mentioned nonischemic cardiomyopathy. The patient's mother indicated that the patient had 2 stents; however, there is no indication in the record that the patient has had any stents. It looks like she had a catheterization in June of this year, which showed no atherosclerotic disease at all, and there was no mention at that time of stents and Dr. Dawkins's subsequent documentation from September that she has had a history of any stents. Her mother also believes that her cardiomyopathy was the result of taking "the wrong blood pressure medication." History of epilepsy, but no seizure for past 5 or 6 years. PAST SURGICAL HISTORY: Defibrillator replaced in September of 2018. She has had her benign right breast tumor removed in 2006. FAMILY HISTORY: Father had diabetes, hypertension. SOCIAL HISTORY: Nonsmoker. She drinks occasionally socially. No drugs. She is single. She is full code. Her grandmother would be her surrogate decision maker. ALLERGIES: NONE. HOME MEDICATIONS: 1. Entresto 49/51 one p.o. b.i.d. 2. Lasix 20 mg daily. 3. Carvedilol 6.25 mg one p.o. b.i.d. PHYSICAL EXAMINATION: VITAL SIGNS: On presentation to the ER, the patient's blood pressure was 214/127, pulse was 73, temperature 99.1, O2 saturations were 100%. Vital signs here on the observation unit; temperature is 97.7, pulse 67, respirations 20, O2 saturations 100%, and blood pressure is 176/104. GENERAL APPEARANCE: Age-appropriate female, in no distress. She is awake, alert, oriented, pleasant, cooperative. HEENT: LINDSAY. No OP lesions. NECK: Supple and symmetric. HEART: Regular rate and rhythm. No murmurs, gallops, or rubs. LUNGS: Clear bilaterally with good chest wall expansion and air exchange. ABDOMEN: Soft, nontender, and nondistended. Positive bowel sounds. No masses. No organomegaly. EXTREMITIES: There is slight tenderness at the knees without significant effusions. No peripheral edema. PSYCH: Normal affect and behavior. NEURO: The patient moves all extremities spontaneously. Normal cranial nerve function. LABORATORY DATA: White count 5.4, hemoglobin 12.6, platelets 257. Sodium 138, potassium 3.3, chloride 104, BUN 13, creatinine is 1.11, glucose 108, calcium 9.3, albumin 4.4. IMAGING STUDIES: Chest x-ray shows stable cardiomegaly with AICD in place. EKG shows some LVH, sinus rhythm. IMPRESSION AND PLAN: 1. Hypertensive urgency in a patient with a nonischemic cardiomyopathy. In the emergency department, she received a dose of p.o. clonidine and a nitroglycerin paste. Her blood pressure has improved to the degree that she is feeling back to her baseline, although she is still somewhat hypertensive. We will keep her in observation today, give p.r.n. IV medications, let her take her usual home regimen for today, and keep her on telemetry, may need to interrogate her defibrillator given the palpitations associated with this. We will try to discuss with Dr. Ly as well. 2. Chronic ischemic cardiomyopathy. Continue with the Bird. Job ID: [id number]
[2019-04-24] MEDS ORDERED: Ondansetron ODT 4 MG TAB PO PRN (12:15)
[2019-04-24] MEDS ORDERED: Ondansetron PF 4 MG/2 ML Vial IVP PRN (12:15)
[2019-04-24] MEDS: Acetaminophen 325 MG TAB PO PRN ×2 (12:31→20:17)
[2019-04-24 12:49] LABS: Troponin I Less than 0.010 ng/mL (< 0.028)
[2019-04-24] MEDS: Carvedilol 6.25 MG TAB PO SCH (17:17)
[2019-04-24] MEDS: Sacubitril 49 MG/Valsartan 51 MG TABLET PO SCH (20:18)
[2019-04-25] MEDS: Sacubitril 49 MG/Valsartan 51 MG TABLET PO SCH (08:01)
[2019-04-25] MEDS: Carvedilol 6.25 MG TAB PO SCH (08:02)
[2019-04-25] MEDS ORDERED: Furosemide 20 MG TAB PO SCH (09:00)
[2019-04-25 09:24] LABS: Anion Gap 11 mmol/L (10-20); BUN (Urea Nitrogen) 15 mg/dL (7.0-18.7); Calc. Creatinine Clearance 81 mL/min (70-130); Calcium 9.2 mg/dL (7.8-10.44); Carbon Dioxide 25 mmol/L (22-29); Chloride 107 mmol/L (98-107); Estimated GFR-MDRD 73; Glucose 112 mg/dL (70-105); Potassium 3.7 mmol/L (3.5-5.1); Sodium 139 mmol/L (136-145)
[2019-04-25] MEDS ORDERED: FLU VACC QS2019-20(6MOS UP)/PF 60 MCG/0.5 ML SYRINGE IM ONE (10:30)
[2019-04-25 11:54] VITALS: BP 161/99; TEMP 97.9
--- NOTE | 2019-04-25 17:38 | DIS ---
DATE OF ADMISSION: 04/24/2019 DATE OF DISCHARGE: 04/25/2019 DISCHARGE DISPOSITION: Home. FOLLOWUP: 1. Follow up with primary care physician, Dr. Bacon in 3 days. 2. Follow up with the primary brewery pumper, Dr. Ly in 1 to 2 weeks. ALLERGIES: NO KNOWN DRUG ALLERGIES. DISCHARGE MEDICATIONS: Same as admission medication. A prescription for clonidine as needed was provided for uncontrolled blood pressure. The patient was seen and examined on the day of discharge. Denies any new complaints. No shortness of breath or chest pain reported. Her blood pressure is stable. This morning, her blood pressure was 128/89. BRIEF HOSPITAL COURSE: The patient is a 28-year-old female with nonischemic cardiomyopathy, ejection fraction 20% to 25%, status post defibrillator placement, presented to the emergency room with shortness of breath and dizziness. Her initial vital signs in the emergency room showed blood pressure of 214/127 with a pulse rate of 73. She received 1 dose of clonidine along with 1 inch nitroglycerin patch. Her blood pressure improved to 154/117 in the emergency room. She was monitored overnight. On home dose of Entresto and carvedilol, her blood pressure is stable at this time. She was advised to monitor her blood pressure 2 to 3 times on a daily basis. A prescription for clonidine was provided. FINAL DIAGNOSES: 1. Hypertensive urgency of unclear etiology. Her blood pressure is stable on her routine home medications. 2. Chronic systolic heart failure ejection fraction 20% to 25%, status post AICD. 3. Obesity with a BMI of 30.3. 4. Hypokalemia, replaced. 5. Chronic kidney disease, stage 2. PLAN: Plan of care was discussed with the patient in detail. She stated understanding. Job ID: [id number]
== END 2019-04-25 14:22 | disposition home or self-care (01) ==
LOC: ERS 05:58 → 2SW 09:41
PROVIDERS: ADMIT Internal Medicine; ATTEND Internal Medicine
DX: I16.0 Hypertensive urgency (principal); I42.8 Other cardiomyopathies; I13.0 Hypertensive heart and chronic kidney disease with heart failure and stage 1 through stage 4 chronic kidney disease, or unspecified chronic kidney disease; N18.2 Chronic kidney disease, stage 2 (mild); I50.22 Chronic systolic (congestive) heart failure; E87.6 Hypokalemia; E66.9 Obesity, unspecified; Z68.30 Body mass index [BMI] 30.0-30.9, adult; Z79.899 Other long term (current) drug therapy; Z95.810 Presence of automatic (implantable) cardiac defibrillator
CPT/HCPCS: 36415; 71045; 80048; 80053; 83735; 83880; 84484; 85025; 90471; 90686; 93005; G0008; G0378; Q0162

== ENCOUNTER 2020-04-19 12:07 | Emergency (ER) | payer SELFPAY ==
[2020-04-19 13:32] LABS: #Basophils 0.1 thou/uL (0.0-0.2); #Eosinphils 0.1 thou/uL (0.0-0.7); #Lymphocytes 1.8 thou/uL (1.20-3.40); #Monocytes 0.6 thou/uL (0.11-0.59); #Neutrophils 2.8 thou/uL (1.40-6.50); %Basophils 1.4 % (0.0-1.0); %Eosinophils 1.1 % (0.0-10.0); %Lymphocytes 33.9 % (21.0-51.0); %Monocytes 10.6 % (0.0-10.0); %Neutrophils 53.1 % (42.0-75.0); Hemoglobin 13.4 g/dL (12.0-16.0); Mean Corpuscular HGB CONC 32.2 g/dL (32.0-36.0); Mean Corpuscular Hemoglobin 25.1 pg (27.0-31.0); Mean Corpuscular Volume 77.9 fL (78.0-98.0); Mean Platelet Volume 8.8 fL (7.4-10.4); Platelet Count 282 thou/uL (130-400); RBC Distribution Width 12.3 % (11.5-14.5); Red Blood Cell (RBC) Count 5.34 mill/uL (4.20-5.40); White Blood Cell (WBC) Count 5.2 thou/uL (4.8-10.8)
[2020-04-19 13:55] LABS: ALT (SGPT) Less than 7 U/L (8-55); AST (SGOT) 12 U/L (5-34); Albumin 4.7 g/dL (3.5-5.0); Alkaline Phosphatase 64 U/L (40-110); Anion Gap 18 mmol/L (10-20); BUN (Urea Nitrogen) 23 mg/dL (7.0-18.7); Bilirubin, Total 1.1 mg/dL (0.2-1.2); CK (CPK) 82 U/L (29-168); Calc. Creatinine Clearance 0 mL/min (70-130); Calcium 9.5 mg/dL (7.8-10.44); Carbon Dioxide 22 mmol/L (22-29); Chloride 103 mmol/L (98-107); Estimated GFR-MDRD 61; Globulin 3.5 g/dL (2.4-3.5); Glucose 94 mg/dL (70-105); Potassium 3.6 mmol/L (3.5-5.1); Protein, Total 8.2 g/dL (6.0-8.3); Sodium 139 mmol/L (136-145)
--- NOTE | 2020-04-19 14:05 | RAD ---
PORTABLE CHEST 1 VIEW: Date: 04/19/2020 Time: 1258 hours HISTORY: Shortness of breath. Dyspnea. COMPARISON: 04/24/2019. FINDINGS: The heart size is enlarged, but stable. Left-sided AICD remains in place. The lungs are well expanded without lobar consolidation, pneumothoraces, april pulmonary edema, or pleural effusions. IMPRESSION: No acute process. POS: AH
[2020-04-19] MEDS ORDERED: Albuterol 200 PUFF (6.7GM INHALER) ONE (14:47)
== END 2020-04-19 17:08 | disposition home or self-care (01) ==
LOC: ERS 12:07
DX: I11.0 Hypertensive heart disease with heart failure (principal); I50.9 Heart failure, unspecified; G43.909 Migraine, unspecified, not intractable, without status migrainosus; Z79.899 Other long term (current) drug therapy
CPT/HCPCS: 36415; 71045; 80053; 82550; 83880; 84484; 85025; 85379; 93005

== ENCOUNTER 2020-04-23 06:09 | Emergency (ER) | payer SELFPAY ==
[2020-04-23 06:46] LABS: #Basophils 0.1 thou/uL (0.0-0.2); #Eosinphils 0.1 thou/uL (0.0-0.7); #Lymphocytes 2.1 thou/uL (1.20-3.40); #Monocytes 0.5 thou/uL (0.11-0.59); #Neutrophils 2.4 thou/uL (1.40-6.50); %Basophils 1.4 % (0.0-1.0); %Eosinophils 2.4 % (0.0-10.0); %Lymphocytes 40.2 % (21.0-51.0); %Monocytes 9.5 % (0.0-10.0); %Neutrophils 46.5 % (42.0-75.0); Hemoglobin 12.6 g/dL (12.0-16.0); Mean Corpuscular HGB CONC 32.6 g/dL (32.0-36.0); Mean Corpuscular Hemoglobin 25.2 pg (27.0-31.0); Mean Corpuscular Volume 77.3 fL (78.0-98.0); Mean Platelet Volume 8.5 fL (7.4-10.4); Platelet Count 270 thou/uL (130-400); RBC Distribution Width 12.4 % (11.5-14.5); Red Blood Cell (RBC) Count 4.99 mill/uL (4.20-5.40); White Blood Cell (WBC) Count 5.2 thou/uL (4.8-10.8)
[2020-04-23] MEDS ORDERED: Lidocaine Viscous Sol 2% 15 ml UD Cup ONE (06:53)
[2020-04-23] MEDS ORDERED: Mag-Al 1200 mg/1200 mg/30 ML UDCUP ONE (06:53)
[2020-04-23 07:06] LABS: ALT (SGPT) 7 U/L (8-55); AST (SGOT) 12 U/L (5-34); Albumin 4.8 g/dL (3.5-5.0); Alkaline Phosphatase 61 U/L (40-110); Anion Gap 18 mmol/L (10-20); BUN (Urea Nitrogen) 19 mg/dL (7.0-18.7); Bilirubin, Total 1.1 mg/dL (0.2-1.2); Calc. Creatinine Clearance 0 mL/min (70-130); Calcium 9.7 mg/dL (7.8-10.44); Carbon Dioxide 20 mmol/L (22-29); Chloride 105 mmol/L (98-107); Globulin 3.6 g/dL (2.4-3.5); Glucose 94 mg/dL (70-105); Lipase 16 U/L (8-78); Potassium 3.6 mmol/L (3.5-5.1); Protein, Total 8.4 g/dL (6.0-8.3); Sodium 139 mmol/L (136-145)
--- NOTE | 2020-04-23 07:38 | RAD ---
Chest AP view INDICATION: Chest pain COMPARISON: Prior exam dated April 19, 2020 FINDINGS: Lungs: The lungs are clear Cardiac silhouette: The cardiomediastinal silhouette appears within normal limits. Pulmonary vasculature: Normal Pleural spaces: No pleural effusion or pneumothorax is demonstrated. Upper abdomen: No abnormality seen. Osseous structures: No acute osseous abnormality. Additional findings: Single lead AICD is stable. IMPRESSION: No acute cardiopulmonary abnormality.
[2020-04-23] MEDS ORDERED: Furosemide 20 MG/2 ML VIAL ONE (09:23)
== END 2020-04-23 11:31 | disposition home or self-care (01) ==
LOC: ERS 06:09
DX: I42.9 Cardiomyopathy, unspecified (principal); R13.10 Dysphagia, unspecified; I11.0 Hypertensive heart disease with heart failure; I50.9 Heart failure, unspecified; G40.909 Epilepsy, unspecified, not intractable, without status epilepticus; Z79.899 Other long term (current) drug therapy
CPT/HCPCS: 71045; 80053; 83690; 83880; 84484; 85025; 93005; 94760; 96374; J1940

== ENCOUNTER 2022-08-12 21:59 | Inpatient (IN) | payer OTHER, SELFPAY ==
[2022-08-12] MEDS ORDERED: Nitroglycerin 2% Ointment 1 INCH/1 GM Packet ONE (22:43)
[2022-08-12] MEDS ORDERED: cloNIDine 0.1 MG TAB ONE (23:01)
[2022-08-12 23:11] LABS: Hemoglobin 14.5 g/dL (12.0-16.0); Mean Corpuscular Hemoglobin 26.9 pg (27.0-31.0); Mean Corpuscular Volume 79.2 fl (78.0-98.0); Mean Platelet Volume 8.6 fL (7.4-10.4); Platelet Count 301 10x3/uL (130-400); RBC Distribution Width 12.6 % (11.5-14.5); Red Blood Cell (RBC) Count 5.39 mill/uL (4.20-5.40); White Blood Cell (WBC) Count 6.7 10x3/uL (4.8-10.8)
[2022-08-12] MEDS ORDERED: Carvedilol 6.25 MG TAB PO SCH (23:15)
[2022-08-12 23:30] LABS: ALT (SGPT) 13 U/L (8-55); AST (SGOT) 13 U/L (5-34); Albumin 4.9 g/dL (3.5-5.0); Alkaline Phosphatase 81 U/L (40-110); Anion Gap 15 mmol/L (10-20); BUN (Urea Nitrogen) 16 mg/dL (7.0-18.7); Bilirubin, Total 0.5 mg/dL (0.2-1.2); Calc. Creatinine Clearance 0 mL/min (70-130); Calcium 10.3 mg/dL (7.8-10.44); Carbon Dioxide 24 mmol/L (22-29); Chloride 106 mmol/L (98-107); Estimated GFR 67; Globulin 3.8 g/dL (2.4-3.5); Glucose 100 mg/dL (70-105); Potassium 3.7 mmol/L (3.5-5.1); Protein, Total 8.7 g/dL (6.0-8.3); Sodium 141 mmol/L (136-145)
[2022-08-12 23:36] LABS: Band 1 % (5-11); Eosinophils 7 % (0-10); Lymphocytes 55 % (21-51); MDiff Complete? YES; Monocytes 5 % (0-10); Neutrophil 27 % (42-75); Reactive Lymphocytes 5 % (0-10)
[2022-08-12] MEDS ORDERED: hydrALAZINE 20 MG/ML VIAL ONE (23:55)
[2022-08-13] MEDS ORDERED: hydrALAZINE 20 MG/ML VIAL ONE (00:03)
[2022-08-13] MEDS ORDERED: niCARdipine 25 MG/10 ML SDV ONE (01:03)
[2022-08-13] MEDS ORDERED: hydrALAZINE 20 MG/ML VIAL SLOW IVP PRN ×2 (02:44→19:36)
[2022-08-13 03:19] VITALS: BMI 31.3
[2022-08-13] MEDS ORDERED: niCARdipine 25 MG in Sodium Chloride 0.9% 250 ML 250 ML IVPB SCH (03:30)
[2022-08-13 03:35] LABS: Troponin I 0.018 ng/mL (< 0.028)
[2022-08-13] MEDS ORDERED: cloNIDine 0.1 MG TAB PO PRN (03:38)
[2022-08-13 04:23] LABS: #Eosinphils 0.1 thou/uL (0.0-0.7); #Lymphocytes 2.5 thou/uL (1.20-3.40); #Monocytes 0.3 thou/uL (0.11-0.59); #Neutrophils 2.3 thou/uL (1.40-6.50); %Basophils 0.7 % (0.0-1.0); %Eosinophils 2.8 % (0.0-10.0); %Lymphocytes 46.6 % (21.0-51.0); %Monocytes 6.4 % (0.0-10.0); %Neutrophils 43.6 % (42.0-75.0); Hemoglobin 14.8 g/dL (12.0-16.0); Mean Corpuscular HGB CONC 33.7 g/dL (32.0-36.0); Mean Corpuscular Hemoglobin 26.6 pg (27.0-31.0); Mean Corpuscular Volume 79.2 fl (78.0-98.0); Mean Platelet Volume 8.9 fL (7.4-10.4); Platelet Count 296 10x3/uL (130-400); RBC Distribution Width 12.8 % (11.5-14.5); Red Blood Cell (RBC) Count 5.55 mill/uL (4.20-5.40); White Blood Cell (WBC) Count 5.4 10x3/uL (4.8-10.8)
[2022-08-13 04:44] LABS: ALT (SGPT) 13 U/L (8-55); AST (SGOT) 14 U/L (5-34); Albumin 4.6 g/dL (3.5-5.0); Alkaline Phosphatase 81 U/L (40-110); Anion Gap 17 mmol/L (10-20); BUN (Urea Nitrogen) 13 mg/dL (7.0-18.7); Bilirubin, Total 0.6 mg/dL (0.2-1.2); Calc. Creatinine Clearance 95 mL/min (70-130); Calcium 10.1 mg/dL (7.8-10.44); Carbon Dioxide 18 mmol/L (22-29); Chloride 108 mmol/L (98-107); Estimated GFR 86; Glucose 112 mg/dL (70-105); Potassium 3.5 mmol/L (3.5-5.1); Protein, Total 8.6 g/dL (6.0-8.3); Sodium 139 mmol/L (136-145)
[2022-08-13 06:33] LABS: Troponin I 0.019 ng/mL (< 0.028)
[2022-08-13] MEDS ORDERED: Carvedilol 6.25 MG TAB PO SCH (08:00)
[2022-08-13] MEDS: Furosemide 20 MG TAB PO SCH (08:27)
[2022-08-13] MEDS: Famotidine 20 MG TAB PO SCH ×2 (08:27→21:17)
[2022-08-13] MEDS: Sacubitril 49 MG/Valsartan 51 MG TABLET PO SCH ×2 (08:27→21:16)
[2022-08-13] MEDS ORDERED: Amlodipine 5 MG TAB PO SCH (14:45)
[2022-08-13] MEDS: Carvedilol 6.25 MG TAB PO SCH (16:45)
[2022-08-13] MEDS ORDERED: Carvedilol 25 MG TAB PO SCH (17:00)
[2022-08-13] MEDS ORDERED: Acetaminophen 325 MG TAB PO SCH (18:45)
[2022-08-14] MEDS: Labetalol HCl 100 MG/20 ML VIAL SLOW IVP PRN ×2 (00:44→11:16)
[2022-08-14 04:26] LABS: #Eosinphils 0.3 thou/uL (0.0-0.7); #Monocytes 0.6 thou/uL (0.11-0.59); #Neutrophils 2.5 thou/uL (1.40-6.50); %Basophils 0.5 % (0.0-1.0); %Eosinophils 4.2 % (0.0-10.0); %Lymphocytes 46.7 % (21.0-51.0); %Monocytes 8.7 % (0.0-10.0); %Neutrophils 39.9 % (42.0-75.0); Hemoglobin 13.5 g/dL (12.0-16.0); Mean Corpuscular HGB CONC 31.3 g/dL (32.0-36.0); Mean Corpuscular Hemoglobin 24.8 pg (27.0-31.0); Mean Corpuscular Volume 79.1 fl (78.0-98.0); Mean Platelet Volume 8.8 fL (7.4-10.4); Platelet Count 300 10x3/uL (130-400); RBC Distribution Width 12.8 % (11.5-14.5); Red Blood Cell (RBC) Count 5.45 mill/uL (4.20-5.40); White Blood Cell (WBC) Count 6.3 10x3/uL (4.8-10.8)
[2022-08-14] MEDS ORDERED: Acetaminophen 325 MG TAB PO PRN (05:05)
[2022-08-14 05:19] LABS: ALT (SGPT) 11 U/L (8-55); AST (SGOT) 10 U/L (5-34); Albumin 4.5 g/dL (3.5-5.0); Alkaline Phosphatase 70 U/L (40-110); Anion Gap 14 mmol/L (10-20); BUN (Urea Nitrogen) 16 mg/dL (7.0-18.7); Bilirubin, Total 0.6 mg/dL (0.2-1.2); Calc. Creatinine Clearance 91 mL/min (70-130); Calcium 9.9 mg/dL (7.8-10.44); Carbon Dioxide 21 mmol/L (22-29); Chloride 108 mmol/L (98-107); Estimated GFR 83; Globulin 3.5 g/dL (2.4-3.5); Glucose 94 mg/dL (70-105); Potassium 3.5 mmol/L (3.5-5.1); Sodium 139 mmol/L (136-145)
[2022-08-14] MEDS ORDERED: Prochlorperazine Edisylate 10 MG in Sodium Chloride 0.9% 50 ML IVPB SCH (06:45)
[2022-08-14] MEDS ORDERED: Amlodipine 5 MG TAB PO SCH (09:00)
[2022-08-14] MEDS ORDERED: Amlodipine 10 MG TAB PO SCH (09:00)
[2022-08-14] MEDS: Famotidine 20 MG TAB PO SCH (09:07)
[2022-08-14] MEDS: Carvedilol 6.25 MG TAB PO SCH (09:07)
[2022-08-14] MEDS: Sacubitril 49 MG/Valsartan 51 MG TABLET PO SCH ×2 (09:07→21:40)
[2022-08-14] MEDS: Furosemide 20 MG TAB PO SCH (09:08)
[2022-08-14] MEDS ORDERED: Labetalol HCl 100 MG/20 ML VIAL SLOW IVP PRN (12:34)
[2022-08-14] MEDS ORDERED: Labetalol HCl 100 MG/20 ML VIAL SLOW IVP SCH (12:45)
[2022-08-14] MEDS ORDERED: cloNIDine 0.1 MG TAB PO SCH (15:15)
[2022-08-14] MEDS: Carvedilol 25 MG TAB PO SCH (15:48)
[2022-08-14] MEDS ORDERED: NIFEdipine XL 60 MG TAB PO SCH (16:00)
[2022-08-14] MEDS: cloNIDine 0.1 MG TAB PO SCH (21:39)
[2022-08-15 04:56] LABS: #Basophils 0.1 thou/uL (0.0-0.2); #Eosinphils 0.2 thou/uL (0.0-0.7); #Lymphocytes 3.3 thou/uL (1.20-3.40); #Monocytes 0.6 thou/uL (0.11-0.59); #Neutrophils 4.5 thou/uL (1.40-6.50); %Basophils 0.7 % (0.0-1.0); %Eosinophils 2.3 % (0.0-10.0); %Lymphocytes 37.8 % (21.0-51.0); %Monocytes 7.2 % (0.0-10.0); %Neutrophils 52.1 % (42.0-75.0); Hemoglobin 13.6 g/dL (12.0-16.0); Mean Corpuscular HGB CONC 31.8 g/dL (32.0-36.0); Mean Corpuscular Hemoglobin 25.2 pg (27.0-31.0); Mean Corpuscular Volume 79.1 fl (78.0-98.0); Mean Platelet Volume 9.1 fL (7.4-10.4); Platelet Count 302 10x3/uL (130-400); RBC Distribution Width 12.8 % (11.5-14.5); White Blood Cell (WBC) Count 8.6 10x3/uL (4.8-10.8)
[2022-08-15 05:12] LABS: ALT (SGPT) 10 U/L (8-55); AST (SGOT) 11 U/L (5-34); Albumin 4.4 g/dL (3.5-5.0); Alkaline Phosphatase 69 U/L (40-110); Anion Gap 15 mmol/L (10-20); BUN (Urea Nitrogen) 16 mg/dL (7.0-18.7); Bilirubin, Total 0.7 mg/dL (0.2-1.2); Calc. Creatinine Clearance 97 mL/min (70-130); Calcium 9.8 mg/dL (7.8-10.44); Carbon Dioxide 20 mmol/L (22-29); Chloride 106 mmol/L (98-107); Estimated GFR 89; Globulin 3.4 g/dL (2.4-3.5); Glucose 103 mg/dL (70-105); Potassium 3.3 mmol/L (3.5-5.1); Protein, Total 7.8 g/dL (6.0-8.3); Sodium 138 mmol/L (136-145)
[2022-08-15] MEDS: NIFEdipine XL 60 MG TAB PO SCH ×2 (06:49→10:07)
[2022-08-15] MEDS ORDERED: cloNIDine 0.1 MG TAB PO SCH ×2 (09:00→21:00)
[2022-08-15] MEDS: Furosemide 20 MG TAB PO SCH (10:07)
[2022-08-15] MEDS: Carvedilol 25 MG TAB PO SCH ×2 (10:07→18:15)
[2022-08-15] MEDS: cloNIDine 0.1 MG TAB PO SCH ×3 (10:07→21:20)
[2022-08-15] MEDS: Sacubitril 49 MG/Valsartan 51 MG TABLET PO SCH ×2 (10:07→21:20)
[2022-08-15] MEDS ORDERED: Potassium Chloride 20 MEQ TAB PO SCH (11:00)
[2022-08-16 05:20] LABS: #Basophils 0.1 thou/uL (0.0-0.2); #Eosinphils 0.2 thou/uL (0.0-0.7); #Monocytes 0.6 thou/uL (0.11-0.59); #Neutrophils 3.3 thou/uL (1.40-6.50); %Eosinophils 2.8 % (0.0-10.0); %Lymphocytes 42.1 % (21.0-51.0); %Monocytes 8.7 % (0.0-10.0); %Neutrophils 45.3 % (42.0-75.0); Hemoglobin 13.5 g/dL (12.0-16.0); Mean Corpuscular HGB CONC 31.7 g/dL (32.0-36.0); Mean Corpuscular Hemoglobin 25.2 pg (27.0-31.0); Mean Corpuscular Volume 79.5 fl (78.0-98.0); Mean Platelet Volume 8.9 fL (7.4-10.4); Platelet Count 276 10x3/uL (130-400); Red Blood Cell (RBC) Count 5.36 mill/uL (4.20-5.40); White Blood Cell (WBC) Count 7.2 10x3/uL (4.8-10.8)
[2022-08-16 05:42] LABS: ALT (SGPT) 11 U/L (8-55); AST (SGOT) 11 U/L (5-34); Albumin 4.1 g/dL (3.5-5.0); Alkaline Phosphatase 66 U/L (40-110); Anion Gap 14 mmol/L (10-20); BUN (Urea Nitrogen) 20 mg/dL (7.0-18.7); Bilirubin, Total 0.8 mg/dL (0.2-1.2); Calc. Creatinine Clearance 93 mL/min (70-130); Calcium 9.7 mg/dL (7.8-10.44); Carbon Dioxide 21 mmol/L (22-29); Chloride 108 mmol/L (98-107); Estimated GFR 84; Globulin 3.8 g/dL (2.4-3.5); Glucose 96 mg/dL (70-105); Potassium 3.7 mmol/L (3.5-5.1); Protein, Total 7.9 g/dL (6.0-8.3); Sodium 139 mmol/L (136-145)
[2022-08-16] MEDS: Sacubitril 49 MG/Valsartan 51 MG TABLET PO SCH (09:23)
[2022-08-16] MEDS: cloNIDine 0.1 MG TAB PO SCH ×2 (09:23→14:06)
[2022-08-16] MEDS: NIFEdipine XL 60 MG TAB PO SCH (09:23)
[2022-08-16] MEDS: Carvedilol 25 MG TAB PO SCH (09:24)
[2022-08-16] MEDS: Furosemide 20 MG TAB PO SCH (09:24)
[2022-08-16] MEDS ORDERED: cloNIDine 0.1mg/24 Hour PATCH TD SCH (12:00)
[2022-08-16 12:08] VITALS: BP 108/72; TEMP 97.6
[2022-08-22] MEDS ORDERED: cloNIDine 0.1mg/24 Hour PATCH TD SCH (09:00)
== END 2022-08-16 14:20 | disposition home or self-care (01) | DRG 305 ==
LOC: ERS 21:59 → CCU 08-13 01:15 → 2NO 08-13 19:51
PROVIDERS: ADMIT Family Medicine; ATTEND Family Medicine
DX: I16.0 Hypertensive urgency (principal); I50.22 Chronic systolic (congestive) heart failure; I42.9 Cardiomyopathy, unspecified; I16.1 Hypertensive emergency; I11.0 Hypertensive heart disease with heart failure; G40.909 Epilepsy, unspecified, not intractable, without status epilepticus; R42 Dizziness and giddiness; R00.0 Tachycardia, unspecified; E87.6 Hypokalemia; Z79.899 Other long term (current) drug therapy; Z82.49 Family history of ischemic heart disease and other diseases of the circulatory system; Z95.810 Presence of automatic (implantable) cardiac defibrillator
CPT/HCPCS: 36415; 71045; 76770; 80053; 83880; 84443; 84484; 85025; 93005; 93306; 93976; 96374; J0360; J0780; J1650

== ENCOUNTER 2024-02-25 16:14 | Outpatient (CLI) | payer OTHER | END 2024-02-25 16:15 | disposition home or self-care (01) | LOC: BICRAD 16:14 | PROVIDERS: ATTEND Nurse Practitioner Family | DX: R05.3 Chronic cough (principal); I51.7 Cardiomegaly | CPT/HCPCS: 71046 ==

== ENCOUNTER 2024-05-11 09:11 | Emergency (ER) | payer OTHER | END 2024-05-11 10:53 | disposition home or self-care (01) | LOC: ERS 09:11 | DX: R05.9 Cough, unspecified (principal); I10 Essential (primary) hypertension; Z79.899 Other long term (current) drug therapy | CPT/HCPCS: 71045; 87428 ==